=== PATIENT | male | born 1995 | race African-American/Black ===

== ENCOUNTER 2016-10-14 12:44 | Emergency (ER) | payer BC, OTHER ==
[~2016-10-14] VITALS: Ht 180.3 cm; Wt 73.0 kg
[2016-10-14 19:42] VITALS: BP 114/75
== END 2016-10-14 19:50 | disposition home or self-care (01) ==
LOC: ER 13:09
DX: B35.6 Tinea cruris (principal)
CPT/HCPCS: 99283

== ENCOUNTER 2017-01-21 10:28 | Emergency (ER) | payer BC ==
[~2017-01-21] VITALS: Ht 177.8 cm; Wt 75.0 kg
[2017-01-21 12:12] VITALS: BP 128/63
== END 2017-01-21 13:26 | disposition home or self-care (01) ==
LOC: ER 11:01
DX: R51 Headache (principal)
CPT/HCPCS: 70450; 99284; Z7610

== ENCOUNTER 2017-03-12 08:56 | Emergency (ER) | payer BC ==
[~2017-03-12] VITALS: Ht 177.8 cm; Wt 75.0 kg
[2017-03-12] MEDS ORDERED: KETOROLAC 60MG/2ML VIAL IM STA (09:57)
[2017-03-12 10:13] VITALS: BP 119/61
[2017-03-12 10:14] LABS: CLARITY URINE CLEAR (CLEAR); COLOR URINE YELLOW (YELLOW); GLUCOSE URINE NEGATIVE (NEGATIVE); KETONES URINE NEGATIVE (NEGATIVE); LEUKOCYTE ESTERASE URINE 1+ (NEGATIVE); NITRITE URINE NEGATIVE (NEGATIVE); OCCULT BLOOD URINE NEGATIVE (NEGATIVE); PH URINE 6.5 (4.5-8.0); PROTEIN URINE NEGATIVE (NEGATIVE); SPECIFIC GRAVITY URINE 1.021 (1.005-1.030); UROBILINOGEN URINE 0.2 E.U./dL (0.2-1.0)
[2017-03-12 10:22] LABS: BASOPHILS % 0.6 % (0.0-2.0); EOSINOPHILS % 1.9 % (0.0-5.0); HEMATOCRIT. 42.1 % (42.0-52.0); HEMOGLOBIN. 14.3 g/dL (14.0-18.0); LYMPHOCYTES % 29.5 % (20.0-50.0); MEAN CORPUSCULAR HEMOGLOBIN 31.2 pg (28.0-32.0); MEAN CORPUSCULAR VOLUME 91.6 fL (80.0-94.0); MEAN PLATELET VOLUME 7.6 fl (7.4-10.4); MONOCYTES % 7.8 % (2.0-8.0); NEUTROPHILS % 60.2 % (40.0-76.0); PLATELET 208 x1000/uL (130-400); RED BLOOD CELL COUNT 4.59 mill/uL (4.7-6.1); RED CELL DISTRIBUTION WIDTH 12.9 % (11.6-14.6)
[2017-03-12 10:29] LABS: INR 1.1; PROTHROMBIN TIME 11.2 sec (9.4-11.6)
[2017-03-12 10:38] LABS: CARBON DIOXIDE 29 mEq/L (21-32); CHLORIDE 105 mEq/L (98-107)
[2017-03-12] MEDS ORDERED: LIDOCAINE HCL 1% 20ML VIAL (Pyxis) INJ INFIL ONE (11:30)
[2017-03-12] MEDS ORDERED: CEFTRIAXONE SODIUM 250 MG/VIAL IM ONE (11:30)
[2017-03-12] MEDS ORDERED: AZITHROMYCIN 250 MG TABLET PO ONE (11:30)
== END 2017-03-12 11:56 | disposition home or self-care (01) ==
LOC: ER 10:06
DX: N39.0 Urinary tract infection, site not specified (principal)
CPT/HCPCS: 36415; 80053; 81001; 83690; 85025; 85610; 96372; 99284; J0696; J1885; J3490; Z7610

== ENCOUNTER 2017-07-16 09:18 | Emergency (ER) | payer BC ==
[~2017-07-16] VITALS: Ht 180.3 cm; Wt 74.0 kg
[2017-07-16 09:28] VITALS: BP 135/76
== END 2017-07-16 14:12 | disposition left against medical advice (07) ==
LOC: ER 09:26
DX: N39.0 Urinary tract infection, site not specified (principal); Z53.21 Procedure and treatment not carried out due to patient leaving prior to being seen by health care provider

== ENCOUNTER 2017-07-17 05:09 | Emergency (ER) | payer BC ==
[~2017-07-17] VITALS: Ht 180.3 cm; Wt 75.0 kg
[2017-07-17 05:33] VITALS: BP 128/75
== END 2017-07-17 10:05 | disposition left against medical advice (07) ==
LOC: ER 05:39
DX: M54.9 Dorsalgia, unspecified (principal)

== ENCOUNTER 2017-07-18 15:00 | Emergency (ER) | payer BC ==
[~2017-07-18] VITALS: Ht 177.8 cm; Wt 73.0 kg
[2017-07-18 15:15] VITALS: BP 143/71
== END 2017-07-18 21:51 | disposition left against medical advice (07) ==
LOC: ER 16:19
DX: Z53.21 Procedure and treatment not carried out due to patient leaving prior to being seen by health care provider (principal)

== ENCOUNTER 2017-07-19 08:43 | Emergency (ER) | payer BC ==
[~2017-07-19] VITALS: Ht 180.3 cm; Wt 75.0 kg
[2017-07-19 11:30] LABS: CLARITY URINE CLEAR (CLEAR); COLOR URINE YELLOW (YELLOW); KETONES URINE NEGATIVE (NEGATIVE); LEUKOCYTE ESTERASE URINE 1+ (NEGATIVE); NITRITE URINE NEGATIVE (NEGATIVE); OCCULT BLOOD URINE NEGATIVE (NEGATIVE); PROTEIN URINE NEGATIVE (NEGATIVE); SPECIFIC GRAVITY URINE 1.026 (1.005-1.030); UROBILINOGEN URINE 0.2 E.U./dL (0.2-1.0)
[2017-07-19] MEDS ORDERED: CEFTRIAXONE SODIUM 250 MG/VIAL IM NR (11:45)
[2017-07-19] MEDS ORDERED: LIDOCAINE HCL 1% 20ML VIAL (Pyxis) INJ MC NR (11:45)
[2017-07-19] MEDS ORDERED: AZITHROMYCIN 500 MG TABLET PO NR (11:45)
[2017-07-19 12:43] VITALS: BP 138/74
== END 2017-07-19 12:47 | disposition home or self-care (01) ==
LOC: ER 09:21
DX: N34.2 Other urethritis (principal); J06.9 Acute upper respiratory infection, unspecified
CPT/HCPCS: 71010; 81001; 96372; 99285; J0696; J3490

== ENCOUNTER 2018-03-25 16:18 | Emergency (ER) | payer SELFPAY ==
[~2018-03-25] VITALS: Ht 180.3 cm; Wt 81.0 kg
[2018-03-25 17:22] LABS: BASOPHILS % 0.3 % (0.0-2.0); EOSINOPHILS % 1.8 % (0.0-5.0); HEMATOCRIT. 46.2 % (42.0-52.0); HEMOGLOBIN. 15.9 g/dL (14.0-18.0); LYMPHOCYTES % 34.9 % (20.0-50.0); MEAN CORPUSCULAR HEMOGLOBIN 32.1 pg (28.0-32.0); MEAN CORPUSCULAR VOLUME 93.5 fL (80.0-94.0); MEAN PLATELET VOLUME 8.3 fl (7.4-10.4); MONOCYTES % 8.8 % (2.0-8.0); NEUTROPHILS % 54.2 % (40.0-76.0); PLATELET 253 x1000/uL (130-400); RED BLOOD CELL COUNT 4.94 mill/uL (4.7-6.1); RED CELL DISTRIBUTION WIDTH 12.8 % (11.6-14.6)
[2018-03-25 17:27] LABS: CHLORIDE 106 mEq/L (98-107)
[2018-03-25 18:25] VITALS: BP 136/87
== END 2018-03-25 18:27 | disposition home or self-care (01) ==
LOC: ER 16:18
DX: K62.5 Hemorrhage of anus and rectum (principal); R03.0 Elevated blood-pressure reading, without diagnosis of hypertension; Z98.890 Other specified postprocedural states
CPT/HCPCS: 36415; 80053; 83690; 85025; 99284

== ENCOUNTER 2018-06-20 06:29 | Emergency (ER) | payer SELFPAY ==
[~2018-06-20] VITALS: Ht 180.3 cm; Wt 85.0 kg
[2018-06-20 06:42] VITALS: BP 137/76
[2018-06-20] MEDS ORDERED: AZITHROMYCIN 500 MG TABLET PO ONE (08:15)
[2018-06-20] MEDS ORDERED: CEFTRIAXONE SODIUM 250 MG/VIAL IM ONE (08:15)
[2018-06-20 08:54] LABS: CLARITY URINE CLEAR (CLEAR); COLOR URINE YELLOW (YELLOW); KETONES URINE TRACE (NEGATIVE); LEUKOCYTE ESTERASE URINE NEGATIVE (NEGATIVE); NITRITE URINE NEGATIVE (NEGATIVE); OCCULT BLOOD URINE NEGATIVE (NEGATIVE); PH URINE 6.5 (4.5-8.0); PROTEIN URINE NEGATIVE (NEGATIVE); SPECIFIC GRAVITY URINE 1.025 (1.005-1.030); UROBILINOGEN URINE 0.2 E.U./dL (0.2-1.0)
[2018-06-23 08:15] LABS: CHLAMYDIA TRACHOMATIS NAA Negative (Negative); NEISSERIA GONORRHOEAE NAA Negative (Negative)
== END 2018-06-20 09:14 | disposition home or self-care (01) ==
LOC: ER 06:29
DX: N48.29 Other inflammatory disorders of penis (principal); Z72.51 High risk heterosexual behavior
CPT/HCPCS: 81003; 87491; 87591; 96372; 99283; J0696

== ENCOUNTER 2018-12-11 18:16 | Emergency (ER) | payer BC | END 2018-12-11 18:49 | disposition left against medical advice (07) | LOC: ER 18:16 | DX: Z53.21 Procedure and treatment not carried out due to patient leaving prior to being seen by health care provider (principal) ==

== ENCOUNTER 2021-09-10 00:20 | Emergency (ER) | payer SELFPAY ==
[~2021-09-10] VITALS: Ht 175.3 cm; Wt 84.0 kg
[2021-09-10] MEDS ORDERED: ACETAMINOPHEN 325MG TABLET PO STA (00:54)
[2021-09-10] MEDS ORDERED: IBUP-2029 MT (02:30)
[2021-09-10 02:35] VITALS: BP 128/90
== END 2021-09-10 02:40 | disposition home or self-care (01) ==
LOC: ER 00:20
DX: R51.9 Headache, unspecified (principal)
CPT/HCPCS: 99284